=== PATIENT | female | born 1965 | race Two or more races ===

== ENCOUNTER 2022-03-30 10:00 | Outpatient (CLI) | payer MEDICAID ==
[~2022-03-30] VITALS: Ht 172.7 cm; Wt 77.1 kg
[2022-03-30] MEDS ORDERED: ASPI325T4 PO (15:10)
[2022-03-30] MEDS ORDERED: SULF400T11 PO (15:10)
[2022-03-30] MEDS ORDERED: PERCOT PO (15:10)
[2022-03-30] MEDS ORDERED: POM (15:10)
[2022-03-30] MEDS ORDERED: CLON0.5T PO (15:10)
[2022-03-30] MEDS ORDERED: ATOR20TA50 PO (15:10)
[2022-03-30] MEDS ORDERED: METO25TA5 PO (15:10)
[2022-03-30] MEDS ORDERED: ONDA-144 PO (15:10)
== END 2022-03-30 10:20 | disposition home or self-care (01) ==
LOC: LAB 10:00 → EDSTATUS 04-03 10:32
PROVIDERS: ATTEND Internal Medicine Cardiovascular Disease
DX: Z20.822 Contact with and (suspected) exposure to COVID-19 (principal)

== ENCOUNTER → 2023-12-12 | Day surgery (SDC) | payer MEDICAID ==
[2023-12-10 12:26] LABS: Basophils # (auto) 0.1 10 ^3/uL (0-0.2); Eosinophils # (auto) 0.1 10 ^3/uL (0-0.8); Monocytes # (auto) 0.4 10 ^3/uL (0-1.3)
[2023-12-10 12:27] LABS: Eosinophils % (auto) 0.7 % (0.0-7.0); Hemoglobin 13.4 g/dL (12.2-16.2); Lymphocytes # (auto) 1.4 10 ^3/uL (0.4-5.4); Lymphocytes % (auto) 11.1 % (10.0-50.0); Mean Corpuscular Hemoglobin 30.1 pg (28.0-32.0); Mean Corpuscular Hgb Conc. 32.6 g/dL (32.0-36.0); Mean Corpuscular Volume 92.3 fL (80.0-100.0); Monocytes % (auto) 3.6 % (0.0-12.0); Neutrophils # (auto) 10.4 10 ^3/uL (1.6-8.6); Neutrophils % (auto) 83.6 % (37.0-80.0); Platelet Count (auto) 465 10^3/uL (140-450); Red Blood Cells 4.44 10^6/uL (4.0-5.20); Red Cell Distribution Width 14.9 % (11.8-14.3); White Blood Cell 12.4 10^3/uL (4.4-10.8)
[2023-12-10 12:31] LABS: Urine Bacteria FEW /hpf (None Seen); Urine Blood Negative /uL (Negative); Urine Clarity Clear (Clear); Urine Color Light-Yellow (Yellow); Urine Mucus FEW (None Seen); Urine Protein, UAD TRACE (Negative); Urine Specific Gravity 1.026 (1.001-1.035); Urine Urobilinogen Normal (Negative); Urine WBC 1 /hpf (0 - 5)
[2023-12-10 12:41] LABS: INR 1.02 (0.9-1.15); Partial Thromboplastin Time 28.8 SEC (24.5-34.5); Prothrombin Time 10.8 sec (9.3-11.8)
[2023-12-10 12:59] LABS: Alanine Aminotransferase 28 U/L (7-40); Alkaline Phosphatase 123 U/L (46-116); Anion Gap 10 (5-15); Aspartate Aminotransferase 26 U/L (13-40); Bilirubin, Total 0.3 mg/dL (0.2-1.0); Blood Urea Nitrogen 24 mg/dL (9-23); Calcium 10.2 mg/dL (8.7-10.4); Carbon Dioxide 26 mmol/L (20-30); Chloride 104 mmol/L (98-107); Glucose 120 mg/dL (74-106); Potassium 5.4 mmol/L (3.5-5.1); Sodium 140 mmol/L (136-145)
[~2023-12-12] VITALS: Ht 172.7 cm; Wt 72.6 kg
[~2023-12-12] MED LIST: ASPI325T6 PO; ATOR20TA50 PO; CLON-1003 PO; EVOL140I SC; FURO1TAB31 PO; GLYCOPYRROLATE 0.2 MG/ML 1ML VIAL ONE; METO25TA5 PO; MIDAZOLAM HCL 2MG/2ML 2ml VIAL (1mg/ml) ONE; ONDA-144 PO; ONDANSETRON HCL 4 MG/2 ML VIAL ONE; PERCOT PO; POM; PROPOFOL 10 MG/ML 20 ML IV ONE; SULF400T11 PO; fentaNYL CITRATE 100 MCG/2 ML VL ONE
[2023-12-12 09:34] VITALS: TEMP 97.8
[2023-12-12 12:30] VITALS: BP 120/62; PULSE 66; RESP 16; O2SAT 100
== END | disposition home or self-care (01) ==
LOC: GI 08:52
PROVIDERS: ATTEND Internal Medicine Gastroenterology
DX: R13.10 Dysphagia, unspecified (principal); K29.50 Unspecified chronic gastritis without bleeding; K44.9 Diaphragmatic hernia without obstruction or gangrene; R10.9 Unspecified abdominal pain; R11.2 Nausea with vomiting, unspecified; I25.10 Atherosclerotic heart disease of native coronary artery without angina pectoris; I25.2 Old myocardial infarction; I12.9 Hypertensive chronic kidney disease with stage 1 through stage 4 chronic kidney disease, or unspecified chronic kidney disease; E11.22 Type 2 diabetes mellitus with diabetic chronic kidney disease; N18.32 Chronic kidney disease, stage 3b; E87.6 Hypokalemia; F43.10 Post-traumatic stress disorder, unspecified; F41.9 Anxiety disorder, unspecified; Z96.643 Presence of artificial hip joint, bilateral; Z90.712 Acquired absence of cervix with remaining uterus; Z79.899 Other long term (current) drug therapy; Z88.8 Allergy status to other drugs, medicaments and biological substances; Z80.0 Family history of malignant neoplasm of digestive organs
CPT/HCPCS: 36415; 43239; 43450; 80053; 81001; 85025; 85610; 85730; 88305; 88312; 88342; J2250; J2405; J2704; J3010; J7030

== ENCOUNTER 2024-08-31 06:59 | Inpatient (IN) | payer MEDICAID ==
[2024-08-28 10:20] LABS: Urine Bacteria None Seen /hpf (None Seen)
[2024-08-28 10:30] LABS: Basophils # (auto) 0.1 10 ^3/uL (0-0.2); Basophils % (auto) 1.3 % (0.0-2.0); Eosinophils # (auto) 0.3 10 ^3/uL (0-0.8); Eosinophils % (auto) 4.2 % (0.0-7.0); Hematocrit 33.9 % (36.0-46.0); Hemoglobin 11.2 g/dL (12.2-16.2); Lymphocytes # (auto) 1.4 10 ^3/uL (0.4-5.4); Lymphocytes % (auto) 18.3 % (10.0-50.0); Mean Corpuscular Hemoglobin 29.1 pg (28.0-32.0); Mean Corpuscular Hgb Conc. 33.1 g/dL (32.0-36.0); Mean Corpuscular Volume 87.9 fL (80.0-100.0); Monocytes # (auto) 0.5 10 ^3/uL (0-1.3); Monocytes % (auto) 6.4 % (0.0-12.0); Neutrophils # (auto) 5.5 10 ^3/uL (1.6-8.6); Neutrophils % (auto) 69.8 % (37.0-80.0); Platelet Count (auto) 334 10^3/uL (140-450); Red Blood Cells 3.85 10^6/uL (4.0-5.20); Red Cell Distribution Width 14.5 % (11.8-14.3); White Blood Cell 7.8 10^3/uL (4.4-10.8)
[2024-08-28 10:33] LABS: Urine Blood Negative /uL (Negative); Urine Clarity Clear (Clear); Urine Color Light-Yellow (Yellow); Urine Protein, UAD Negative (Negative); Urine Specific Gravity 1.021 (1.001-1.035); Urine Squamous Epithelial Cell MOD /hpf (<5); Urine Urobilinogen Normal (Negative); Urine WBC 1 /HPF (0-5); Urine pH 6.5 (5.0-9.0)
[2024-08-28 10:45] LABS: INR 0.99 (0.9-1.15); Partial Thromboplastin Time 28.8 SEC (24.5-34.5); Prothrombin Time 10.5 sec (9.3-11.8)
[2024-08-28 10:50] LABS: Alanine Aminotransferase 11 U/L (7-40); Albumin 4.3 g/dL (3.2-4.8); Alkaline Phosphatase 79 U/L (46-116); Anion Gap 8 (5-15); Aspartate Aminotransferase 17 U/L (13-40); Blood Urea Nitrogen 17 mg/dL (9-23); Calcium 9.3 mg/dL (8.7-10.4); Carbon Dioxide 29 mmol/L (20-31); Chloride 104 mmol/L (98-107); Glucose 105 mg/dL (74-106); Potassium 4.1 mmol/L (3.5-5.1); Sodium 141 mmol/L (136-145); Total Protein 6.7 g/dL (5.7-8.2)
[2024-08-28 10:53] LABS: Bilirubin, Total 0.2 mg/dL (0.2-1.0)
[~2024-08-31] VITALS: Ht 172.7 cm; Wt 77.2 kg
[2024-08-31] VITALS (8 sets, daily range): BP systolic 95–132; BP diastolic 58–85; PULSE 80–100; RESP 15–18; TEMP 97.7–99; O2SAT 93–97
[~2024-08-31 06:59] MED LIST changes: +ASPI-498 OR; -ASPI325T6 PO; -ATOR20TA50 PO; +DEXL30CA6 PO; -GLYCOPYRROLATE 0.2 MG/ML 1ML VIAL ONE; -MIDAZOLAM HCL 2MG/2ML 2ml VIAL (1mg/ml) ONE; -ONDANSETRON HCL 4 MG/2 ML VIAL ONE; -PROPOFOL 10 MG/ML 20 ML IV ONE; -SULF400T11 PO; -fentaNYL CITRATE 100 MCG/2 ML VL ONE
[2024-08-31] MEDS: TRANEXAMIC ACID 20 ML ONE (07:07)
[2024-08-31] MEDS: ceFAZolin 2 GM/D5W50ml 50 ML IV ONE (07:08)
[2024-08-31] MEDS: ACETAMINOPHEN IV 100 ML IV ONE (07:08)
[2024-08-31] MEDS: CEFEPIME 1GM/ 50ML 50 ML IV ONE (07:09)
[2024-08-31] MEDS ORDERED: MIDAZOLAM HCL 2MG/2ML 2ml VIAL (1mg/ml) ONE (07:20)
[2024-08-31] MEDS ORDERED: MORPHINE SULF PF 5 MG/10 ML VIAL ONE (07:20)
[2024-08-31] MEDS ORDERED: fentaNYL CITRATE 100 MCG/2 ML VL ONE (07:20)
[2024-08-31] MEDS: ACETAMINOPHEN IV 1000 MG/100ML (10MG/ML) IV ONE (07:45)
[2024-08-31] MEDS: PREGABALIN CAPSULE 75 MG CAP PO ONE (07:45)
[2024-08-31] MEDS: CELECOXIB 100 MG CAP PO ONE (07:45)
[2024-08-31] MEDS: TETRACAINE 1% INJ 2 ML VIAL IJ ONE (08:00)
[2024-08-31] MEDS: CELECOXIB 100 MG CAP ONE (08:04)
[2024-08-31] MEDS: ceFAZolin 1GM/50ML 50 ML IV SCH (08:15)
[2024-08-31] MEDS ORDERED: NITROGLYCERIN 0.4 MG SL TAB SL PRN (08:15)
[2024-08-31] MEDS: LACTATED RINGER'S 1,000 ML IV SCH (08:15)
[2024-08-31] MEDS ORDERED: MORPHINE SULFATE INJ 2 MG/ml SYRG IV PRN (08:15)
[2024-08-31] MEDS ORDERED: traMADol HCL 50 MG TAB PO PRN (08:15)
[2024-08-31] MEDS ORDERED: DexAMETHasone SOD PHOS 10MG/1ML VIAL INJ ONE (08:59)
[2024-08-31] MEDS: BUPIVACAINE 0.25% INJ 50ML VIAL ONE (09:21)
[2024-08-31] MEDS: MORPHINE SULF PF 5 MG/10 ML VIAL ONE (09:23)
[2024-08-31] MEDS: KETOROLAC TROMETH 30 MG/ML 1ML VIAL ONE (09:24)
[2024-08-31] MEDS: VANCOMYCIN HCL 1000 MG VL ONE (09:40)
[2024-08-31] MEDS ORDERED: DexAMETHasone SOD PHOS 10MG/1ML VIAL INJ IV PRN (10:00)
[2024-08-31] MEDS ORDERED: ePHEDrine SULFATE 50 MG/ML AMP IV PRN (10:00)
[2024-08-31] MEDS: clonazePAM 0.5 MG TAB PO SCH (10:00)
[2024-08-31] MEDS: METOPROLOL TARTRATE 25 MG TAB PO SCH (10:00)
[2024-08-31] MEDS: DOCUSATE SOD 100 MG CAP PO SCH (10:00)
[2024-08-31] MEDS ORDERED: hydrALAZINE HCL 20 MG/ML VL IV PRN (10:00)
[2024-08-31] MEDS ORDERED: diphenhdrAMINE HCL 50 MG/1 ML VL IV PRN (10:00)
[2024-08-31] MEDS: FUROSEMIDE 40 MG TAB PO SCH (10:00)
[2024-08-31] MEDS: ROPIVACAINE 0.5% (5MG/ML) 20ML AMPULE IJ ONE (10:21)
[2024-08-31] MEDS ORDERED: LIDOCAINE 1% INJ PF 5ML AMP ONE (10:24)
--- NOTE | 2024-08-31 10:40 | DVHNC2 ---
Procedure - Called for post-operative analgesia s/p left total knee arthroplasty. Patient experiencing knee pain after surgery. Informed consent for left adductor canal block had already been obtained pre-op. History taken, chart reviewed and patient examined. Anatomy of the thigh examined with ultrasound. Skin prep and draped. Skin infiltrated with 1% lido. 4'" 22G needle placed with ultrasound guidance and 20cc PF 0.5% ropivacaine incrementally injected with multiple negat maría aspirations. No heme or paresthesia. Pt reports discomfort easing. Will follow as needed. MALINDA PALM MD August 31, 2024 10:40
--- NOTE | 2024-08-31 11:07 | DVHOP2 ---
Discharge Orders Discharge Orders DISCHARGE WHEN CRITERIA MET DISCHARGE WHEN CRITERIA MET. Operative Rep- Outpatient Operative Report PRE-OP DIAGNOSIS: Left knee DJD POST-OP DIAGNOSIS: same ESTIMATED BLOOD LOSS: 50cc PROCEDURE: Left TKA Computer navigation of the left knee The patient is a 58-year-old female who is failing conservative measures physical therapy activity modifications injections and bracing. The patient has failed all nonoperative modalities of the right lower extremity. The patient has failed nonoperative treatments as pain and discomfort with the left lower extremity The patient understands the risks and benefits of surgical and nonsurgical treatment of the left lower extremity and also surgical treatment of the right lower extremity. The patient was seen in the preoperative volume of the right lower extremity was marked the patient is to have procedure and anesthesia was induced and also to hospital protocol the right lower extremity swelling due to evidence infection as it was not for infection prophylaxis TXA was given for bleeding prophylaxis right lower extremity was prepped and draped in standard fashion there was an incision was made in incision through skin subcu tissue muscle fascia down to bone the medial vertebral arthrotomy was then created with the fat pad was then carefully removed off the fat pad small deep medial release was then completed the ACL PCL medial and lateral meniscus were transected once I was I was retracted and the proximal tibia cut was then completed with computer navigation with a 3 degree flexion. With a nuclear weapons mechanical specialist alignment access in the appropriate manner the proximal tibia cut was then completed and the distal femoral, with a computer navigation on flexion-extension interosseous rotation was then done with a 3 degree flexion care with the distal femoral hardware and completed the form 1 sizing block was then brought onto the field and then sized to a size 5 femoral component was present at the tibial base plate was then removed the medial and lateral meniscus removed the ACL was removed the PCL was carefully removed m size 4 tibial base plate was punching killed the proper manner the bone stock was appropriate size femoral component was patch and kill all the trochlea was carefully removed the terminal liver spacer block was balanced in flexion and it is such a low 13 mm spacer block was then removed. Stent at the tibia was then placed in prone position the femoral component was placed in the prone position once I was entered in the appropriate manner a 13 mm poly was then balanced and flexors interossei and rotation all trial components were carefully. A size 3 tibial base plate cement was put in a size 4 femoral component cementless was brought in a 13 mm constrainst poly was placed in appropriate position patella in the rectum was then completed the knee was irrigated comparison saline then closed with an Ethibond followed by 1. Vicryl followed by 0 Vicryl followed by 2-0 Monocryl followed by neptali prior plate negative pressure wound VAC the patient will be weight-bearing as tolerated on the right lower extremity PT OT out of bed daily follow up in 2 weeks' time SURGEON/CUT OFF SAW TENDER METAL: Dalton Matute MD ANESTHESIA: Sohail BOOGIE ANESTHESIOLOGIST: INFORMED CONSENT: Informed Consent: Discussed all inherent risks, complications, and alternatives treatments with the patient. Patient has agreed to proceed with the procedure. I have reviewed all pre-operative assessments including Labs, EKGs, and radiographic images that has been performed. Patient is an appropriate candidate for the outpatient surgical center procedure. DALTON MATUTE MD August 31, 2024 11:07
[2024-08-31] MEDS ORDERED: HYDROmorphone HCL 2 MG/ML VL/or syr ONE (11:10)
[2024-08-31] MEDS: HYDROmorphone HCL 2 MG/ML VL/or syr IV PRN ×2 (11:12→16:32)
[2024-08-31] MEDS: ONDANSETRON HCL 4 MG/2 ML VIAL IV PRN ×2 (11:55→18:47)
--- NOTE | 2024-08-31 12:14 | DVH ---
CLINICAL INDICATION: S/P SURGERY TECHNIQUE: 3 radiographic views of the left knee were obtained. Comparison: None FINDINGS/IMPRESSION: Postsurgical changes from left knee arthroplasty.
[2024-08-31] MEDS: SODIUM CHLOR 0.9% PF (SALINE LOCK) 10ML VIAL/SYR IV SCH (14:00)
[2024-08-31] MEDS: KETOROLAC TROMETH 30 MG/ML 1ML VIAL IV PRN (15:54)
[2024-08-31] MEDS: PANTOPRAZOLE 40 MG TAB PO SCH (18:47)
[2024-09-01] VITALS (26 sets, daily range): BP systolic 101–158; BP diastolic 56–92; PULSE 9–128; RESP 15–20; TEMP 98–99; O2SAT 93–99
--- NOTE | 2024-09-01 07:29 | DVHPN2 ---
Progress Note Date Seen: September 01, 2024 Medical Necessity Reason Pt with a Central, PICC or Fol: No Subjective Patient reports: Feels worse (Patient experiencing severe pain as expected) Objective vital signs Vital Sign Date Time Temp Pulse Resp B/P (MAP) Pulse Ox O2 Delivery O2 Flow Rate FiO2 09/01/24 06:49 100 16 95 09/01/24 05:00 98.8 104/56 (72) 98.8 08/31/24 20:00 Nasal Cannula* 3 32 Total Intake and Output 08/31/24 08/31/24 09/01/24 15:00 23:00 07:00 Intake Total 100 ml 50 ml Balance 100 ml 50 ml medications Current Medications Medications Dose Ordered Sig/Ailin Route Start Time Stop Time Status Last Admin Dose Admin Clonazepam 0.5 mg DAILY PO 08/31/24 10:00 Furosemide 40 mg DAILY PO 08/31/24 10:00 Metoprolol Tartrate 25 mg BID PO 08/31/24 10:00 08/31/24 21:00 25 MG Cefepime HCl 50 ml @ 12.5 mls/hr DAILY IV 09/01/24 10:00 Lactated Ringer's 1,000 ml @ 100 mls/hr Q10H IV 08/31/24 08:15 Sodium Chloride 10 ml Q8HR IV 08/31/24 14:00 09/01/24 06:00 10 ML Hydromorphone HCl 1 mg Q2HP PRN IV 08/31/24 08:15 09/01/24 04:03 1 MG Docusate Sodium 100 mg Q12HR PO 08/31/24 10:00 08/31/24 21:00 100 MG Enoxaparin Sodium 40 mg DAILY SC 09/01/24 10:00 Nitroglycerin 0.4 mg Q5MINP PRN SL 08/31/24 08:15 Morphine Sulfate 2 mg Q30M PRN IV 08/31/24 08:15 Tramadol HCl 50 mg Q4HP PRN PO 08/31/24 08:15 Ketorolac Tromethamine 15 mg Q6HPRN PRN IV 08/31/24 08:15 09/05/24 08:14 09/01/24 06:08 15 MG Pantoprazole Sodium 40 mg BID@0600,1700 PO 08/31/24 17:00 09/01/24 06:00 40 MG Diphenhydramine HCl 25 mg Q4HP PRN IV 08/31/24 10:00 Ondansetron HCl 4 mg Q4HP PRN IV 08/31/24 10:00 09/01/24 04:14 4 MG Examination: GENERAL:Normal, MSK:Abnormal laboratory and microbiology Laboratory Tests 08/28/24 10:06 Test 09/01/24 06:10 Range/Units Serum Glucose Pending Problem List/Assessment/Plan Problem List/Assessment/Plan 58 year old female who is s/p Left TKA POD 1 1. Pain control- will be difficult due to chronic narcotic dependence. Discussed this with patient at the bedside, can attempt to alternate between oral and IV pain medication 2. WBAT LLE with use of walker 3. CPM as ordered 4. Physical therapy 5. DVT ppx Plan discussed with: Patient Date of Service: September 01, 2024 Billing Provider: MARY VELASQUEZ MD Common Visit Codes: NOT BILLABLE MARILU REDDY NP September 01, 2024 07:28
[2024-09-01 07:43] LABS: Hematocrit 27.6 % (36.0-46.0); Hemoglobin 9.2 g/dL (12.2-16.2)
[2024-09-01 08:04] LABS: Alkaline Phosphatase 71 U/L (46-116); Anion Gap 8 (5-15); BUN/Creatinine Ratio 13.5 (10.0-20.0); Blood Urea Nitrogen 21 mg/dL (9-23); Calcium 9.3 mg/dL (8.7-10.4); Carbon Dioxide 29 mmol/L (20-31); Chloride 101 mmol/L (98-107); Glucose 92 mg/dL (74-106); Potassium 4.1 mmol/L (3.5-5.1); Sodium 138 mmol/L (136-145); Total Protein 6.2 g/dL (5.7-8.2)
[2024-09-01 08:05] LABS: Alanine Aminotransferase < 9 U/L (7-40); Aspartate Aminotransferase 19 U/L (13-40); Bilirubin, Total 0.3 mg/dL (0.2-1.0)
[2024-09-01] MEDS: CEFEPIME 1GM/ 50ML 50 ML IV SCH (08:58)
[2024-09-01] MEDS: ENOXAPARIN SOD 40 MG/0.4 ML SYRINGE SC SCH (09:01)
--- NOTE | 2024-09-01 11:39 | DVHHP2 ---
Review of Systems Allergies: Coded Allergies: Chlorpromazine (Verified Allergy, Unknown, Tounge swells up, 03/30/22) Gabapentin (Verified Allergy, Unknown, muscle spasm, 03/30/22) Levofloxacin (Verified Allergy, Unknown, 12/12/23) Acetaminophen (Unverified Adverse Reaction, Mild, N/V, 08/27/24) Hydrocodone (Unverified Adverse Reaction, Mild, N/V, 08/27/24) Medications Current Medications Medications Dose Ordered Sig/Ailin Route Start Time Stop Time Status Last Admin Dose Admin Cefepime HCl 50 ml @ 12.5 mls/hr DAILY IV 09/01/24 10:00 09/01/24 08:58 12.5 MLS/HR Lactated Ringer's 1,000 ml @ 100 mls/hr Q10H IV 08/31/24 08:15 Sodium Chloride 10 ml Q8HR IV 08/31/24 14:00 09/01/24 06:00 10 ML Docusate Sodium 100 mg Q12HR PO 08/31/24 10:00 09/01/24 09:01 100 MG Enoxaparin Sodium 40 mg DAILY SC 09/01/24 10:00 09/01/24 09:01 40 MG Nitroglycerin 0.4 mg Q5MINP PRN SL 08/31/24 08:15 Morphine Sulfate 2 mg Q30M PRN IV 08/31/24 08:15 Tramadol HCl 50 mg Q4HP PRN PO 08/31/24 08:15 Pantoprazole Sodium 40 mg BID@0600,1700 PO 08/31/24 17:00 09/01/24 06:00 40 MG Diphenhydramine HCl 25 mg Q4HP PRN IV 08/31/24 10:00 Ondansetron HCl 4 mg Q4HP PRN IV 08/31/24 10:00 09/01/24 09:00 4 MG Exam Vital Signs Vital Signs Date Time Temp Pulse Resp B/P (MAP) Pulse Ox O2 Delivery O2 Flow Rate FiO2 09/01/24 10:49 107 16 96 09/01/24 09:00 98.4 140/79 (99) 98.4 09/01/24 08:00 Nasal Cannula* 3 32 Labs/Xrays Labs Test 09/01/24 06:10 08/28/24 10:06 Range/Units Hemoglobin 9.2 #L 12.2-16.2 g/dL Hematocrit 27.6 #L 36.0-46.0 % Sodium Level 138 136-145 mmol/L Potassium Level 4.1 3.5-5.1 mmol/L Chloride Level 101 98-107 mmol/L Carbon Dioxide Level 29 20-31 mmol/L Anion Gap 8 5-15 Blood Urea Nitrogen 21 9-23 mg/dL Creatinine 1.56 #H 0.550-1.02 mg/dL Glomerular Filtration Rate Calc 38 >90 mL/min BUN/Creatinine Ratio 13.5 10.0-20.0 Serum Glucose 92 74-106 mg/dL Calcium Level 9.3 8.7-10.4 mg/dL Total Bilirubin 0.3 0.2-1.0 mg/dL Aspartate Amino Transferase (AST) 19 13-40 U/L Alanine Aminotransferase (ALT) < 9 7-40 U/L Alkaline Phosphatase 71 46-116 U/L Total Protein 6.2 5.7-8.2 g/dL Albumin 4.0 3.2-4.8 g/dL White Blood Count 7.8 4.4-10.8 10^3/uL Red Blood Count 3.85 L 4.0-5.20 10^6/uL Mean Corpuscular Volume 87.9 80.0-100.0 fL Mean Corpuscular Hemoglobin 29.1 28.0-32.0 pg Mean Corpuscular Hemoglobin Concent 33.1 32.0-36.0 g/dL Red Cell Distribution Width 14.5 H 11.8-14.3 % Platelet Count 334 140-450 10^3/uL Mean Platelet Volume 7.3 6.9-10.8 fL Neutrophils (%) (Auto) 69.8 37.0-80.0 % Lymphocytes (%) (Auto) 18.3 10.0-50.0 % Monocytes (%) (Auto) 6.4 0.0-12.0 % Eosinophils (%) (Auto) 4.2 0.0-7.0 % Basophils (%) (Auto) 1.3 0.0-2.0 % Neutrophils # (Auto) 5.5 1.6-8.6 10 ^3/uL Lymphocytes # (Auto) 1.4 0.4-5.4 10 ^3/uL Monocytes # (Auto) 0.5 0-1.3 10 ^3/uL Eosinophils # (Auto) 0.3 0-0.8 10 ^3/uL Basophils # (Auto) 0.1 0-0.2 10 ^3/uL Nucleated Red Blood Cells 0.0 % Prothrombin Time 10.5 9.3-11.8 sec Prothrombin Time INR 0.99 0.9-1.15 Activated Partial Thromboplast Time 28.8 24.5-34.5 SEC Urine Color Light-yellow Yellow Urine Clarity Clear Clear Urine pH 6.5 5.0-9.0 Urine Specific [place] [employer] 1.021 1.001-1.035 Urine Protein Negative Negative Urine Ketones Negative Negative Urine Blood Negative Negative /uL Urine Nitrite Negative Negative Urine Bilirubin Negative Negative Urine Urobilinogen Normal Negative mg/dL Urine Leukocyte Esterase Negative Negative /uL Urine RBC 2 0 - 4 /hpf Urine Microscopic WBC 1 0-5 /HPF Urine Squamous Epithelial Cells Mod <5 /hpf Urine Bacteria None seen None Seen /hpf Urine Glucose Normal Normal mg/dL Assessment/Plan Assessment/Plan see dictated note Plan discussed with: Patient My Orders Orders - DARRYL BERNAL MD Procedure Category Date Status Time Diphenhdramine PHA 09/01/24 Transmitted Injection (Benadryl 11:45 Morphine Sulfate PHA 09/01/24 Transmitted Injection 11:45 Oxycodone W/ Acet PHA 09/01/24 Transmitted 5/325mg Tab (Percocet 11:45 Complete Blood Count LAB 09/02/24 Verified 06:00 Comprehensive LAB 09/02/24 Verified Metabolic Panel 06:00 Chest Portable XY 09/01/24 Transmitted 11:36 Date of Service: September 01, 2024 Billing Provider: DARRYL BERNAL MD Common Visit Codes: [id number] INP/OBS CARE (HIGH) DARRYL BERNAL MD September 01, 2024 11:39
[2024-09-01] MEDS ORDERED: diphenhdrAMINE HCL 50 MG/1 ML VL IV PRN (11:45)
--- NOTE | 2024-09-01 12:00 | DVHHP ---
ADMIT DATE: 08/31/2024 HISTORY OF PRESENT ILLNESS: The patient is a 58-year-old lady who was admitted after she underwent surgery on the left knee for DJD of the knee. The patient at this time denies any shortness of breath. No chest pain. No nausea or vomiting. Review of rest systems otherwise currently negative. PAST MEDICAL HISTORY: Significant for hypertension, questionable congestive heart failure, anxiety, chronic back pain. MEDICATIONS: Include aspirin, Prilosec, Repatha, Lasix, metoprolol, Percocet. ALLERGIES: SEVERAL AND LISTED IN THE RECORDS. SOCIAL HISTORY: Denies smoking. Lives with her daughter. FAMILY HISTORY: Negative. PHYSICAL EXAMINATION: GENERAL: The patient is asleep, arousable. VITAL SIGNS: Temperature of 98.4, pulse 93 per minute, blood pressure is 140/79. SHEENT: Unremarkable. NECK: There is no JVD. EXTREMITIES: No pedal edema. LUNGS: Equal bilaterally. No added sounds. CARDIOVASCULAR: S1, S2 is regular. No murmurs. ABDOMEN: Soft. There is no organomegaly. NEUROLOGIC: Nonfocal. MUSCULOSKELETAL: The left knee is currently in a dressing. ASSESSMENT AND PLAN: * Hypertension for which blood pressure medication will be held. * Acute renal failure, questionable vasomotor nephropathy. The patient will be placed on IV fluids and kidney function will be monitored. * Acute respiratory failure. * Anemia. * Anxiety. * Hyperlipidemia. * Questionable chronic systolic/diastolic heart failure. * Status post left knee surgery for DJD of the knee for which she will be placed on pain medications and receive physical therapy. MD ARCADIO Byrd/NAOMI TID: [id number] RECEIPT: [id number]
--- NOTE | 2024-09-01 13:58 | DVH ---
EXAM: XY CHEST PORTABLE TECHNIQUE: Single frontal chest radiograph CLINICAL HISTORY: htn COMPARISON: None Findings/Impression: Frontal chest radiograph demonstrates no acute osseous or superficial soft tissue abnormalities. The trachea is midline. The cardiac silhouette and mediastinum are within normal limits. Low lung volumes with bronchovascular crowding. Left basilar atelectasis. No pneumothorax, pleural effusions, or consolidations.
[2024-09-02] VITALS (8 sets, daily range): BP systolic 126–158; BP diastolic 61–91; PULSE 111–124; RESP 17–20; TEMP 97.5–99.9; O2SAT 92–100
[2024-09-02] MEDS: OXYCODONE W/ ACETAMINOPHEN 5/325MG TABLET PO PRN (03:09)
[2024-09-02 07:17] LABS: Alkaline Phosphatase 74 U/L (46-116); Anion Gap 9 (5-15); Aspartate Aminotransferase 17 U/L (13-40); BUN/Creatinine Ratio 13.8 (10.0-20.0); Blood Urea Nitrogen 15 mg/dL (9-23); Calcium 9.9 mg/dL (8.7-10.4); Carbon Dioxide 31 mmol/L (20-31); Potassium 4.3 mmol/L (3.5-5.1); Sodium 138 mmol/L (136-145); Total Protein 6.5 g/dL (5.7-8.2)
[2024-09-02 07:18] LABS: Bilirubin, Total 0.5 mg/dL (0.2-1.0)
[2024-09-02 07:21] LABS: Basophils # (auto) 0 10 ^3/uL (0-0.2); Basophils % (auto) 0.2 % (0.0-2.0); Eosinophils # (auto) 0 10 ^3/uL (0-0.8); Hematocrit 26.7 % (36.0-46.0); Lymphocytes # (auto) 0.5 10 ^3/uL (0.4-5.4); Lymphocytes % (auto) 2.8 % (10.0-50.0); Mean Corpuscular Hemoglobin 29.1 pg (28.0-32.0); Mean Corpuscular Hgb Conc. 33.7 g/dL (32.0-36.0); Mean Corpuscular Volume 86.3 fL (80.0-100.0); Monocytes # (auto) 0.7 10 ^3/uL (0-1.3); Neutrophils # (auto) 16.1 10 ^3/uL (1.6-8.6); Platelet Count (auto) 247 10^3/uL (140-450); White Blood Cell 17.3 10^3/uL (4.4-10.8)
[2024-09-02 07:31] LABS: Alanine Aminotransferase < 9 U/L (7-40); Chloride 98 mmol/L (98-107); Glucose 118 mg/dL (74-106)
--- NOTE | 2024-09-02 07:40 | DVHPN2 ---
Progress Note Date Seen: September 02, 2024 Medical Necessity Reason Pt with a Central, PICC or Fol: Yes The following are medically ne: Rausch Catheter Subjective Patient reports: Feels worse (Patient complains pain is poorly conrolled) Objective vital signs Vital Sign Date Time Temp Pulse Resp B/P (MAP) Pulse Ox O2 Delivery O2 Flow Rate FiO2 09/02/24 05:00 98.5 115 17 152/75 (100) 97 98.5 09/01/24 20:00 Nasal Cannula* 3 32 Total Intake and Output 09/01/24 09/01/24 09/02/24 15:00 23:00 07:00 Intake Total 50 ml Balance 50 ml medications Current Medications Medications Dose Ordered Sig/Ailin Route Start Time Stop Time Status Last Admin Dose Admin Cefepime HCl 50 ml @ 12.5 mls/hr DAILY IV 09/01/24 10:00 09/01/24 08:58 12.5 MLS/HR Lactated Ringer's 1,000 ml @ 100 mls/hr Q10H IV 08/31/24 08:15 09/01/24 22:25 100 MLS/HR Sodium Chloride 10 ml Q8HR IV 08/31/24 14:00 09/02/24 06:27 10 ML Docusate Sodium 100 mg Q12HR PO 08/31/24 10:00 09/01/24 09:01 100 MG Enoxaparin Sodium 40 mg DAILY SC 09/01/24 10:00 09/01/24 09:01 40 MG Nitroglycerin 0.4 mg Q5MINP PRN SL 08/31/24 08:15 Morphine Sulfate 2 mg Q30M PRN IV 08/31/24 08:15 Pantoprazole Sodium 40 mg BID@0600,1700 PO 08/31/24 17:00 09/01/24 14:20 40 MG Ondansetron HCl 4 mg Q4HP PRN IV 08/31/24 10:00 09/02/24 06:22 4 MG Diphenhydramine HCl 25 mg Q6HP PRN IV 09/01/24 11:45 Morphine Sulfate 2 mg Q4HPRN PRN IV 09/01/24 11:45 Oxycodone/ Acetaminophen 1 tab Q6HP PRN PO 09/01/24 11:45 09/02/24 03:09 1 TAB Examination: GENERAL:Normal, MSK:Abnormal laboratory and microbiology Laboratory Tests 09/02/24 06:38 Test 09/02/24 06:38 Range/Units Serum Glucose 118 H 74-106 mg/dL Problem List/Assessment/Plan Problem List/Assessment/Plan 58 year old female who is s/p Left TKA POD 2 1. Pain control- will be difficult due to chronic narcotic dependence. Discussed this with patient at the bedside, can attempt to alternate between oral and IV pain medication 2. WBAT LLE with use of walker 3. CPM as ordered 4. Physical therapy 5. DVT ppx 6. follow up in 2 weeks at [facility] ortho clinic 7. Patient is aware she is to continue with pain management for postop pain control due to chronic narcotic dependence 8. Due to the fact that patient lives at home with her daughter who has 6 small children and difficulty with pain control we are recommending SNF for discharge planning, at this time she is clear for discharge to SNF with the following discharge recommendations: Total Knee Arthroplasty Discharge Instructions Wound Care 1. You will likely have a gel-type dressing over your wound, you may keep this on for 7-14 days after leaving the hospital until your first post-op visit, unless it becomes soiled or your skin becomes irritated. If a wound vac dressing is placed on your knee this is to be left in place for one week and will be changed as needed. After your remove the dressing or wound vac, the home health nurse may place clean dry dressing over your wound. Keep wound covered, clean and dry for two weeks. 2. Solway will be removed during your initial post-op visit. If you have concerns about our wound, please call the office immediately. If nervous about staple removal can take pain pill one hour prior to appointment. 3. If there is drainage from your wound, change the dressing daily until it stops. If drainage lasts more than 10 days, call our office. 4. Low grade (up to 100 degrees) fever is common for the first week after surgery. You should take your temperature daily. If you have fevers of 101 or more, please call the office. Medication Management 1. You will be discharged with pain medication, a blood thinner (unless you were previously on a blood thinner prior to surgery) and stool softener. Please follow the instructions regarding these medications as provided by your nurse at the hospital upon discharge. 2. Blood clots in the leg are a known complication of surgery. It is very important that you take the medication to protect against clots. Depending on what you are discharged on typically it is Lovenox 40mg daily for 2 weeks or Aspirin 81mg twice daily for 4 weeks. After you finish this, you should then take baby Aspirin (81mg) once daily for 2 weeks. 3. You should restart all of your prescription medications once discharged from the hospital/surgery center unless specifically instructed otherwise. 4. Herbal supplements may be restarted 2 weeks after surgery. 5. If you have been given Coumadin as a blood thinner, please follow up with your food counter attendant during the first two weeks after surgery to review medications and overall medical well-being. 6. Please note that narcotic pain medication may cause constipation. Please remember to take stool softeners (Colace) when using narcotics to help reduce the change of constipation. You should not use alcohol together with narcotic medication. Activity 1. You can bear as much weight as you tolerate on your knee unless specifically instructed otherwise. You may use the walking aid which you were discharged with and switch to a cane whenever you feel comfortable doing so. You should use an assistive device until you can walk comfortably without it. Keep in mind that every patient moves at their own speed of recovery so take your time. 2. A physical therapist will visit you at home. 3. Use CPM machine as instructed (6 hours a day) and increase flexion by 5 degrees daily. 4. High impact activity such as jumping, aerobics, tennis, and skiing are not permitted during the first 3 months after surgery. These activities can contribute to accelerated wear and should be done with caution after this time. Discuss this with your surgeon if you have questions. 5. Although a bath or whirlpool is NOT permitted during the first 2-3 weeks, you may shower as soon as you get home from the hospital provided there is no wound drainage. Place a dressing or covering over the wound when you shower. 6. Swimming is not permitted until the wound is healed, which typically occurs approximately 3-4 weeks after surgery. [facility] [place] Instructions 1. Driving is not permitted within the first 2 weeks. 2. Your first postoperative visit will take place 2 weeks after discharge. Please call the office once you are home from the hospital to arrange this appointment. 3. Antibiotic preventative treatment is required before dental or other invasive procedures. Please ask your surgeon about this at your first postoperative visit. If you experience chest pain, shortness of breath or severe painful calf swelling, go to the nearest emergency room to be evaluated. Please call our office once your situation is stabilized. Plan discussed with: Patient Date of Service: September 02, 2024 Billing Provider: MARY VELASQUEZ MD Common Visit Codes: NOT BILLABLE MARILU REDDY NP September 02, 2024 07:40
[2024-09-02] MEDS: MORPHINE SULFATE INJ 2 MG/ml SYRG IV PRN (08:12)
--- NOTE | 2024-09-02 10:14 | DVHPN2 ---
Progress Note Date Seen: September 02, 2024 Medical Necessity Reason Pt with a Central, PICC or Fol: Yes The following are medically ne: Rausch Catheter Subjective Patient reports: No new complaints Review of Systems: HEENT:Normal, CVS:Normal, RESPIRATORY:Normal, GI:Normal, :Normal, MSK:Normal, NEURO:Normal Objective vital signs Vital Sign Date Time Temp Pulse Resp B/P (MAP) Pulse Ox O2 Delivery O2 Flow Rate FiO2 09/02/24 09:51 121 20 127/61 09/02/24 09:00 98.6 92 98.6 09/01/24 20:00 Nasal Cannula* 3 32 Total Intake and Output 09/01/24 09/01/24 09/02/24 15:00 23:00 07:00 Intake Total 50 ml Balance 50 ml medications Current Medications Medications Dose Ordered Sig/Ailin Route Start Time Stop Time Status Last Admin Dose Admin Cefepime HCl 50 ml @ 12.5 mls/hr DAILY IV 09/01/24 10:00 09/02/24 09:52 12.5 MLS/HR Lactated Ringer's 1,000 ml @ 100 mls/hr Q10H IV 08/31/24 08:15 09/01/24 22:25 100 MLS/HR Sodium Chloride 10 ml Q8HR IV 08/31/24 14:00 09/02/24 06:27 10 ML Docusate Sodium 100 mg Q12HR PO 08/31/24 10:00 09/02/24 09:49 100 MG Enoxaparin Sodium 40 mg DAILY SC 09/01/24 10:00 09/02/24 09:51 40 MG Nitroglycerin 0.4 mg Q5MINP PRN SL 08/31/24 08:15 Morphine Sulfate 2 mg Q30M PRN IV 08/31/24 08:15 Pantoprazole Sodium 40 mg BID@0600,1700 PO 08/31/24 17:00 09/01/24 14:20 40 MG Ondansetron HCl 4 mg Q4HP PRN IV 08/31/24 10:00 09/02/24 06:22 4 MG Diphenhydramine HCl 25 mg Q6HP PRN IV 09/01/24 11:45 Morphine Sulfate 2 mg Q4HPRN PRN IV 09/01/24 11:45 09/02/24 09:51 2 MG Oxycodone/ Acetaminophen 1 tab Q6HP PRN PO 09/01/24 11:45 09/02/24 03:09 1 TAB Examination: GENERAL:Normal, HEENT:Normal, NECK:Normal, LUNGS:Normal, CVS:Normal, ABDOMEN:Normal, MSK:Abnormal (left knee dressing), SKIN:Normal, NEURO:Normal, :Normal laboratory and microbiology Laboratory Tests 09/02/24 06:38 Test 09/02/24 06:38 Range/Units Serum Glucose 118 H 74-106 mg/dL Problem List/Assessment/Plan Problem List/Assessment/Plan * Hypertension for which blood pressure medication will be held. * Acute renal failure, questionable vasomotor nephropathy. The patient will be placed on IV fluids and kidney function will be monitored. * Acute respiratory failure. * Anemia. * Anxiety. * Hyperlipidemia. * Questionable chronic systolic/diastolic heart failure. * Status post left knee surgery for DJD of the knee for which she will be placed on pain medications and receive physical therapy. advance care planning- full code- time spent 18 mins Plan discussed with: Patient My Orders My Orders Orders - DARRYL BERNAL MD Procedure Category Date Status Time Diphenhdramine PHA 09/01/24 In Process Injection (Benadryl 11:45 Morphine Sulfate PHA 09/01/24 In Process Injection 11:45 Oxycodone W/ Acet PHA 09/01/24 In Process 5/325mg Tab (Percocet 11:45 Chest Portable XY 09/01/24 Resulted 11:36 Lactated Ringers 1000 PHA 09/02/24 Transmitted mL 10:15 Hydromorphone PHA 09/02/24 Transmitted Injection (Dilaudid 10:15 * [employer] Manager CONS 09/02/24 Transmitted Consult Basic Metabolic Panel LAB 09/03/24 Verified 06:00 Complete Blood Count LAB 09/03/24 Verified 06:00 Date of Service: September 02, 2024 Billing Provider: DARRYL BERNAL MD Common Visit Codes: [id number] INP/OBS CARE(HIGH) Secondary Visit Codes: [id number] CARE PLAN 30 MINUTES DARRYL BERNAL MD September 02, 2024 10:14
[2024-09-02] MEDS: LACTATED RINGER'S 1,000 ML IV SCH (10:15)
[2024-09-02] MEDS: HYDROmorphone HCL 2 MG/ML VL/or syr IV PRN (13:14)
[2024-09-03] VITALS (8 sets, daily range): BP systolic 119–157; BP diastolic 67–84; PULSE 119–146; RESP 18–20; TEMP 97.5–98.5; O2SAT 96–100
[2024-09-03 06:08] LABS: Basophils # (auto) 0 10 ^3/uL (0-0.2); Eosinophils % (auto) 1.2 % (0.0-7.0)
[2024-09-03 06:11] LABS: Basophils % (auto) 0.3 % (0.0-2.0); Eosinophils # (auto) 0.2 10 ^3/uL (0-0.8); Lymphocytes # (auto) 0.2 10 ^3/uL (0.4-5.4); Lymphocytes % (auto) 1.8 % (10.0-50.0); Mean Corpuscular Hemoglobin 28.8 pg (28.0-32.0); Mean Corpuscular Hgb Conc. 33.4 g/dL (32.0-36.0); Mean Corpuscular Volume 86.1 fL (80.0-100.0); Monocytes # (auto) 0.6 10 ^3/uL (0-1.3); Monocytes % (auto) 4.7 % (0.0-12.0); Neutrophils # (auto) 11.3 10 ^3/uL (1.6-8.6); Platelet Count (auto) 238 10^3/uL (140-450); Red Blood Cells 2.79 10^6/uL (4.0-5.20); Red Cell Distribution Width 14.4 % (11.8-14.3); White Blood Cell 12.3 10^3/uL (4.4-10.8)
[2024-09-03 06:24] LABS: Calcium 10.1 mg/dL (8.7-10.4); Chloride 99 mmol/L (98-107); Sodium 139 mmol/L (136-145)
[2024-09-03 06:25] LABS: Anion Gap 9 (5-15); Carbon Dioxide 31 mmol/L (20-31)
[2024-09-03 06:30] LABS: Blood Urea Nitrogen 16 mg/dL (9-23); Glucose 84 mg/dL (74-106)
--- NOTE | 2024-09-03 10:04 | DVHDS2 ---
Discharge Summary Date of Admission August 31, 2024 at 08:08 Date of Discharge: September 03, 2024 Labs/Diagnostic Data: Laboratory Results Test 09/03/24 05:01 09/02/24 06:38 08/28/24 10:06 White Blood Count 12.3 10^3/uL (4.4-10.8) Red Blood Count 2.79 10^6/uL (4.0-5.20) Hemoglobin 8.0 g/dL (12.2-16.2) Hematocrit 24.0 % (36.0-46.0) Mean Corpuscular Volume 86.1 fL (80.0-100.0) Mean Corpuscular Hemoglobin 28.8 pg (28.0-32.0) Mean Corpuscular Hemoglobin Concent 33.4 g/dL (32.0-36.0) Red Cell Distribution Width 14.4 % (11.8-14.3) Platelet Count 238 10^3/uL (140-450) Mean Platelet Volume 7.2 fL (6.9-10.8) Neutrophils (%) (Auto) 92.0 % (37.0-80.0) Lymphocytes (%) (Auto) 1.8 % (10.0-50.0) Monocytes (%) (Auto) 4.7 % (0.0-12.0) Eosinophils (%) (Auto) 1.2 % (0.0-7.0) Basophils (%) (Auto) 0.3 % (0.0-2.0) Neutrophils # (Auto) 11.3 10 ^3/uL (1.6-8.6) Lymphocytes # (Auto) 0.2 10 ^3/uL (0.4-5.4) Monocytes # (Auto) 0.6 10 ^3/uL (0-1.3) Eosinophils # (Auto) 0.2 10 ^3/uL (0-0.8) Basophils # (Auto) 0 10 ^3/uL (0-0.2) Nucleated Red Blood Cells 0.0 % Sodium Level 139 mmol/L (136-145) Potassium Level 4.0 mmol/L (3.5-5.1) Chloride Level 99 mmol/L (98-107) Carbon Dioxide Level 31 mmol/L (20-31) Anion Gap 9 (5-15) Blood Urea Nitrogen 16 mg/dL (9-23) Creatinine 0.94 mg/dL (0.550-1.02) Glomerular Filtration Rate Calc 69 mL/min (>90) BUN/Creatinine Ratio 17.0 (10.0-20.0) Serum Glucose 84 mg/dL (74-106) Calcium Level 10.1 mg/dL (8.7-10.4) Total Bilirubin 0.5 mg/dL (0.2-1.0) Aspartate Amino Transferase (AST) 17 U/L (13-40) Alanine Aminotransferase (ALT) < 9 U/L (7-40) Alkaline Phosphatase 74 U/L (46-116) Total Protein 6.5 g/dL (5.7-8.2) Albumin 4.0 g/dL (3.2-4.8) Prothrombin Time 10.5 sec (9.3-11.8) Prothrombin Time INR 0.99 (0.9-1.15) Activated Partial Thromboplast Time 28.8 SEC (24.5-34.5) Urine Color Light-yellow (Yellow) Urine Clarity Clear (Clear) Urine pH 6.5 (5.0-9.0) Urine Specific [place] 1.021 (1.001-1.035) Urine Protein Negative (Negative) Urine Ketones Negative (Negative) Urine Blood Negative /uL (Negative) Urine Nitrite Negative (Negative) Urine Bilirubin Negative (Negative) Urine Urobilinogen Normal mg/dL (Negative) Urine Leukocyte Esterase Negative /uL (Negative) Urine RBC 2 /hpf (0 - 4) Urine Microscopic WBC 1 /HPF (0-5) Urine Squamous Epithelial Cells Mod /hpf (<5) Urine Bacteria None seen /hpf (None Seen) Urine Glucose Normal mg/dL (Normal) Other Laboratory Tests 09/03/24 05:01 Brief Hx & Hospital Course: SEE DICTATED NOTE Condition at Discharge: Fair Final Diagnosis/Problems List KNEE SURGERY Discharge Disposition: Intermediate Facility Discharge Instruct/Medications Diet: Cardiac 2g Na,low cholest Activity: No Restrictions, As Tolerated Follow Up/Referral: FU WITH [facility]/PCP Medications: PER JUN Discharge Statement: "Patient was advised to return to the ER or call 911 if any headaches, dizziness, shortness of breath, chest pain, abdominal pain, bleeding, fevers, or worsening of medical condition. Patient was counseled about treatment plan, medications, possible side effects, patientverbalized understanding. All questions were answered to the best of my ability. This discharge took greater then 30 minutes in planning, reviewing documentation, counseling the patient, and discussing with other team members." ASSESSMENT ASSESSMENT Assessment KNEE SURGERY Date of Service: September 03, 2024 Billing Provider: DARRYL BERNAL MD Common Visit Codes: 29407-ELC/OBS DISCH DAY >30min DARRYL BERNAL MD September 03, 2024 10:04
--- NOTE | 2024-09-03 10:14 | DVHDS ---
DATE OF DISCHARGE: 09/03/2024 HISTORY OF PRESENT ILLNESS: The patient is a 58-year-old lady who was admitted after she underwent surgery on the left knee for DJD of the knee. The patient has a history of hypertension, anemia, anxiety, chronic pain, and hyperlipidemia. HOSPITAL COURSE: The patient had chest x-ray that showed left basal atelectasis. The patient's hemoglobin at time of discharge is 8.0. The patient's creatinine was elevated at 1.5 that improved to 0.9 at the time of transfer. The patient will now be transferred to rehab, with medications as per med reconciliation. FINAL DIAGNOSES: Therefore: * Hypertension. * Acute renal failure, questionable vasomotor nephropathy. * Anemia. * Acute respiratory failure. * Anxiety. * Hyperlipidemia. * Questionable chronic systolic/diastolic heart failure. * Narcotic dependence. * Status post left knee surgery for DJD of the knee. Time spent in discharge planning and review of plan with the patient and nursing was 38 minutes. MD ARCADIO Byrd/WES TID: [id number] RECEIPT: [id number]
[2024-09-03] MEDS: clonazePAM 0.5 MG TAB PO PRN (11:54)
[2024-09-03] MEDS: OXYCODONE W/ ACETAMINOPHEN 5/325MG TABLET PO PRN (14:49)
[2024-09-04] VITALS (9 sets, daily range): BP systolic 105–146; BP diastolic 62–89; PULSE 86–125; RESP 18–19; TEMP 36.8; O2SAT 98–100
--- NOTE | 2024-09-04 12:39 | DVHPN2 ---
Subjective The patient is seen and examined at bedside. No complaint today. Reviewed: Care Plan, H&P, Labs, Medications, Previous Orders Changes from previous H/P or p: No Changes Objective Vitals Vital Signs Date Time Temp Pulse Resp B/P (MAP) Pulse Ox O2 Delivery O2 Flow Rate FiO2 09/04/24 09:20 98.2 112 18 146/89 (108) 99 98.2 09/04/24 07:57 Nasal Cannula* 3 32 Intake/Output Intake and Output 09/04/24 07:00 Intake Total 318 ml Balance 318 ml Intake Oral 318 ml General Appearance: Alert, Oriented X3, Cooperative, No acute distress HEENT: Atraumatic, PERRLA, EOMI, Mucous membr. moist/pink Neck: Supple Lungs: Clear to auscultation Cardiovascular: Regular rate, Normal S1, Normal S2, No murmurs, Gallops, Rubs Neuro: Cranial nerves 3-12 NL Psych/Mental Status: Mental status NL Medications Current Medications Medications Dose Ordered Sig/Ailin Route Start Time Stop Time Status Last Admin Dose Admin Cefepime HCl 50 ml @ 12.5 mls/hr DAILY IV 09/01/24 10:00 09/02/24 09:52 12.5 MLS/HR Sodium Chloride 10 ml Q8HR IV 08/31/24 14:00 09/04/24 05:42 10 ML Docusate Sodium 100 mg Q12HR PO 08/31/24 10:00 09/04/24 07:00 100 MG Enoxaparin Sodium 40 mg DAILY SC 09/01/24 10:00 09/04/24 11:05 40 MG Nitroglycerin 0.4 mg Q5MINP PRN SL 08/31/24 08:15 Morphine Sulfate 2 mg Q30M PRN IV 08/31/24 08:15 Pantoprazole Sodium 40 mg BID@0600,1700 PO 08/31/24 17:00 09/04/24 07:04 40 MG Ondansetron HCl 4 mg Q4HP PRN IV 08/31/24 10:00 09/02/24 13:07 4 MG Diphenhydramine HCl 25 mg Q6HP PRN IV 09/01/24 11:45 Lactated Ringer's 1,000 ml @ 75 mls/hr [id number] IV 09/02/24 10:15 09/02/24 10:15 75 MLS/HR Hydromorphone HCl 1 mg Q4HPRN PRN IV 09/02/24 10:15 09/02/24 13:14 1 MG Clonazepam 0.5 mg DAILY PRN PO 09/03/24 10:45 09/04/24 11:06 0.5 MG Oxycodone/ Acetaminophen 1 tab Q4HPRN PRN PO 09/03/24 14:30 09/04/24 11:06 1 TAB Laboratory Results Laboratory Tests 09/03/24 05:01 Urinalysis Test 08/28/24 10:06 Urine Color Light-yellow (Yellow) Urine Clarity Clear (Clear) Urine pH 6.5 (5.0-9.0) Urine Specific [place] 1.021 (1.001-1.035) Urine Protein Negative (Negative) Urine Ketones Negative (Negative) Urine Blood Negative /uL (Negative) Urine Nitrite Negative (Negative) Urine Bilirubin Negative (Negative) Urine Urobilinogen Normal mg/dL (Negative) Urine Leukocyte Esterase Negative /uL (Negative) Urine RBC 2 /hpf (0 - 4) Urine Microscopic WBC 1 /HPF (0-5) Urine Squamous Epithelial Cells Mod /hpf (<5) Urine Bacteria None seen /hpf (None Seen) Urine Glucose Normal mg/dL (Normal) Labs and/or images reviewed: Labs reviewed by me Assessment/Plan Assessment/Plan * Hypertension * Acute renal failure, questionable vasomotor nephropathy. * Acute respiratory failure. * Anemia. * Anxiety. * Hyperlipidemia. * Questionable chronic systolic/diastolic heart failure. * Status post left knee surgery for DJD Continuing current management. Continuing with pain medication. Continuing with IV fluid. [facility]. This medical document was created using an electronic medical record system with [employer] computerized dictation system. Although this document has been carefully reviewed, there may still be some phonetic and typographical errors. These areas are purely typographical due to imperfections of the software programs, and do not reflect any compromise in the patient's medical care. Plan discussed with: Patient Date of Service: September 04, 2024 Billing Provider: TEVIN DAI MD Common Visit Codes: [id number] INP/OBS CARE(HIGH) TEVIN DAI MD September 04, 2024 12:39
[2024-09-04] MEDS: AZITHROMYCIN 250 MG TAB PO SCH (15:20)
[2024-09-04] MEDS ORDERED: METOPROLOL TARTRATE 25 MG TAB PO SCH (22:00)
== END 2024-09-04 20:30 | DRG 326 ==
LOC: SUR 06:59 → OVERFLOW 08:08 → TELE-WESTW 14:13
PROVIDERS: ADMIT Internal Medicine; ATTEND Internal Medicine
PROC: 8E0YXBZ Computer Assisted Procedure of Lower Extremity (ICD-10-PCS; 2024-08-31)
PROC: 0SRD0J9 Replacement of Left Knee Joint with Synthetic Substitute, Cemented, Open Approach (ICD-10-PCS; principal; 2024-08-31 08:07)
DX: M17.12 Unilateral primary osteoarthritis, left knee (principal); J96.00 Acute respiratory failure, unspecified whether with hypoxia or hypercapnia; N17.0 Acute kidney failure with tubular necrosis; I50.42 Chronic combined systolic (congestive) and diastolic (congestive) heart failure; I11.0 Hypertensive heart disease with heart failure; F41.9 Anxiety disorder, unspecified; G89.29 Other chronic pain; M54.9 Dorsalgia, unspecified; E78.5 Hyperlipidemia, unspecified; D64.9 Anemia, unspecified; F11.20 Opioid dependence, uncomplicated; J98.11 Atelectasis; Z88.1 Allergy status to other antibiotic agents; Z88.6 Allergy status to analgesic agent; Z88.5 Allergy status to narcotic agent
CPT/HCPCS: 36415; 71045; 73562; 80048; 80053; 81001; 85014; 85018; 85025; 85610; 85730; 86850; 86900; 86901; 97110; 97116; 97163; 97530; C1713; G0378; J0131; J1100; J1885; J2250; J2405; J3490